=== PATIENT | male | born 1995 | race Caucasian/White ===

== ENCOUNTER 2017-04-08 13:29 | Emergency (ER) | payer OTHER, BC ==
--- NOTE | 2017-04-08 13:57 | ER Document Report ---
ED Medical Screen (RME) - General Chief Complaint: Probable Seizure Stated Complaint: POSSIBLE SEIZURE Time Seen by Provider: 04/08/17 13:50 Notes: This 22-year-old male patient visiting from [place] is brought from [place] for seizure activity. He had an observed seizure lasting about 3 minutes, was postictal for approximately 10 minutes. He is a very poor historian. He reports he takes Ativan for seizures and for anxiety and is on Suboxone ever since he had pancreatitis. His cousin spoke with the patient's mother and was told that he used to be on a seizure medicine but they do not know what the name of this medication was. By history he possibly stopped taking the medicine 6 months or year ago. His last seizure was approximately a year ago. By history he did not take his Ativan today. I have greeted and performed a rapid initial assessment of this patient. A comprehensive ED assessment and evaluation of the patient, analysis of test results and completion of the medical decision making process will be conducted by additional ED providers. TRAVEL OUTSIDE OF THE [place] IN LAST 30 DAYS: No Past Medical History Renal/ Medical History: Denies: Hx Peritoneal Dialysis Physical Exam - Vital signs Vitals: Temp Pulse Resp BP Pulse Ox 98.6 F 83 13 122/60 96 04/08/17 13:36 04/08/17 13:36 04/08/17 13:36 04/08/17 13:36 04/08/17 13:36 Course - Vital Signs Vital signs: Temp Pulse Resp BP Pulse Ox 98.6 F 83 13 122/60 96 04/08/17 13:36 04/08/17 13:36 04/08/17 13:36 04/08/17 13:36 04/08/17 13:36
[2017-04-08 14:48] LABS: ABSOLUTE LYMPHOCYTES (AUTO) 1.2 10^3/uL (0.5-4.7); ABSOLUTE MONOCYTES (AUTO) 0.5 10^3/uL (0.1-1.4); ABSOLUTE NEUT (AUTO) 16.8 10^3/uL (1.7-8.2); BASOPHILS % (AUTO) 0.2 % (0-2); HEMATOCRIT 46.7 % (37.9-51.0); HEMOGLOBIN 15.2 g/dL (13.5-17.0); HGB HCT DIFFERENCE -1.1; LYMPHOCYTES % (AUTO) 6.3 % (13-45); MEAN CORPUSCULAR HEMOGLOBIN 28.6 pg (27.0-33.4); MEAN CORPUSCULAR HGB CONC 32.6 g/dL (32.0-36.0); MEAN CORPUSCULAR VOLUME 88 fl (80-97); RED BLOOD COUNT 5.32 10^6/uL (4.35-5.55); RED CELL DISTRIBUTION WIDTH 13.4 % (11.5-14.0); SEGMENTED NEUTROPHILS % (AUTO) 90.5 % (42-78); WHITE BLOOD COUNT 18.5 10^3/uL (4.0-10.5)
[2017-04-08 15:04] LABS: ALANINE AMINOTRANSFERASE 34 U/L (21-72); ALBUMIN 5.2 g/dL (3.5-5.0); ALKALINE PHOSPHATASE 90 U/L (38-126); ANION GAP 19 (5-19); ASPARTATE AMINO TRANSFERASE 28 U/L (17-59); BILIRUBIN,DIRECT 0.3 mg/dL (0.0-0.4); BILIRUBIN,TOTAL 0.5 mg/dL (0.2-1.3); BLOOD UREA NITROGEN 16 mg/dL (7-20); CARBON DIOXIDE 24 mmol/L (22-30); CHLORIDE 97 mmol/L (98-107); CREATININE RESULT 0.74 mg/dL (0.52-1.25); GLUCOSE 200 mg/dL (75-110); MAGNESIUM 2.9 mg/dL (1.6-2.3); POTASSIUM 4.4 mmol/L (3.6-5.0); SODIUM 139.9 mmol/L (137-145); TOTAL PROTEIN 8.7 g/dL (6.3-8.2)
[2017-04-08 15:11] LABS: AMORPHOUS SEDIMENT,URINE TRACE /HPF; APPEARANCE,URINE CLOUDY; BILIRUBIN,URINE NEGATIVE (NEGATIVE); GLUCOSE, URINE NEGATIVE (NEGATIVE); KETONES,URINE 80 mg/dL (NEGATIVE); LEUKOCYTE ESTERASE,URINE NEGATIVE (NEGATIVE); NITRITE,URINE NEGATIVE (NEGATIVE); PROTEIN,URINE 100 mg/dL (NEGATIVE); UROBILINOGEN,URINE NEGATIVE mg/dL (<2.0)
[2017-04-08 15:20] LABS: URINE BARBITURATES SCREEN NEGATIVE; URINE METHADONE SCREEN NEGATIVE; URINE OPIATES LOW NEGATIVE; URINE PHENCYCLIDINE SCREEN NEGATIVE
--- NOTE | 2017-04-08 15:34 | ER Document Report ---
ED Seizure - General Chief Complaint: Probable Seizure Stated Complaint: POSSIBLE SEIZURE Time Seen by Provider: 04/08/17 13:50 Mode of Arrival: Ambulatory Information source: Patient, Relative - HPI Patient complains to provider of: History of seizures Number of episodes: 1 Time of onset: THIS A.M. Duration: 1 MIN. Quality of pain: No pain Can details of seizure be obtained/verified: Yes Episode witnessed (by whom): Yes Current seizure medications: Other - WAS ON LORAZEPAM, NONE IN LAST SEVERAL MONTHS Preceding symptoms/context: Other - VOMITING YESTERDAY & LAST PM.. denies: Recent illness/fever, Recent alcohol intake, Recent drug use, Sleep deprivation , Missed dose of meds, Changed meds or dosage, Somnolence Character of seizure: Generalized shaking Post-ictal symptoms: Confusion Injuries: None Associated Symptoms: Confusion, Memory loss Past Medical History - General Information source: Patient - Social History Smoking Status: Unknown if Ever Smoked Cigarette use (# per day): No Chew tobacco use (# tins/day): No Frequency of alcohol use: None Drug Abuse: None Lives with: Family Family History: Reviewed & Not Pertinent Patient has suicidal ideation: No Patient has homicidal ideation: No - Past Medical History Cardiac Medical History: Reports: None Pulmonary Medical History: Reports: None EENT Medical History: Reports: None Neurological Medical History: Reports: Hx Seizures Endocrine Medical History: Reports: None Renal/ Medical History: Reports: None. Denies: Hx Peritoneal Dialysis Malignancy Medical History: Reports None GI Medical History: Reports: Other - PANCREATITIS Musculoskeltal Medical History: Reports None Psychiatric Medical History: Reports: None Past Surgical History: Reports: Hx Pancreatic Surgery - TRANS-ESOPHAGEAL Review of Systems - Review of Systems Constitutional: No symptoms reported EENT: No symptoms reported Cardiovascular: No symptoms reported Respiratory: No symptoms reported Gastrointestinal: See HPI Genitourinary: No symptoms reported Musculoskeletal: No symptoms reported Skin: No symptoms reported Neurological/Psychological: See HPI Physical Exam - Vital signs Vitals: Temp Pulse Resp BP Pulse Ox 98.6 F 83 13 122/60 96 04/08/17 13:36 04/08/17 13:36 04/08/17 13:36 04/08/17 13:36 04/08/17 13:36 Interpretation: Normal - General General appearance: Appears well, Alert In distress: None - HEENT Head: Normocephalic Eyes: Normal Conjunctiva: Normal Ears: Normal Nasal: Normal Mouth/Lips: Normal Mucous membranes: Normal Pharynx: Normal Neck: Normal - Respiratory Respiratory status: No respiratory distress Breath sounds: Normal - Cardiovascular Rhythm: Regular Heart sounds: Normal auscultation Murmur: No - Abdominal Inspection: Normal Distension: No distension Bowel sounds: Normal Tenderness: Nontender - Extremities General upper extremity: Normal inspection General lower extremity: Normal inspection - Neurological Neuro grossly intact: Yes Cognition: Normal Orientation: AAOx4 - Psychological Associated symptoms: Normal affect, Normal mood - Skin Skin Temperature: Warm Skin Moisture: Dry Skin Color: Normal Skin Turgor: Elastic Course - Vital Signs Vital signs: Temp Pulse Resp BP Pulse Ox 98.6 F 83 13 122/60 96 04/08/17 13:36 04/08/17 13:36 04/08/17 13:36 04/08/17 13:36 04/08/17 13:36 - Laboratory Result Diagrams: 04/08/17 14:33 04/08/17 14:33 Laboratory results interpreted by me: 04/08/17 04/08/17 04/08/17 14:15 14:33 14:33 WBC 18.5 H Seg Neutrophils % 90.5 H Lymphocytes % 6.3 L Absolute Neutrophils 16.8 H Chloride 97 L Glucose 200 H Magnesium 2.9 H Total Protein 8.7 H Albumin 5.2 H Urine Protein 100 H Urine Ketones 80 H Urine Blood SMALL H Discharge - Discharge Clinical Impression: Seizure disorder Condition: Stable Disposition: HOME, SELF-CARE Instructions: Seizure, Known Epileptic ([facility]), Benzodiazepines ([facility]), Antinausea Medication ([facility]) Additional Instructions: TAKE LORAZEPAM ([facility]IVAN) DIRECTED. YOU MAY TAKE ZOFRAN FOR NAUSEA CONTROL IF NEEDED. CONTINUE ALL OTHER MEDICATIONS USUAL. FOLLOW UP WITH YOUR PRIMARY CARE PROVIDER. Prescriptions: Lorazepam 1 mg PO TID #30 tablet Ondansetron [Zofran Odt 4 mg Tablet] 1 - 2 tab PO Q4H #10 [email or web address]
[2017-04-08] MEDS ORDERED: LORAZEPAM 1 MG TABLET PO ONE (15:35)
[2017-04-08] MEDS ORDERED: ONDANSETRON 4 MG TAB.RAPDIS PO ONE (15:35)
[2017-04-08 16:30] VITALS: BP 125/87
== END 2017-04-08 16:37 | disposition home or self-care (01) ==
LOC: ER 13:29
DX: G40.909 Epilepsy, unspecified, not intractable, without status epilepticus (principal); R56.9 Unspecified convulsions
CPT/HCPCS: 99284; 36415; 83735; 85025; 80053; 81001; 80307; S0119